=== PATIENT | female | born 1985 | race Caucasian/White ===

== ENCOUNTER 2021-05-17 22:20 | Inpatient (IN) | payer OTHER, SELFPAY ==
[2021-05-18 00:46] VITALS: BMI 29.0
--- NOTE | 2021-05-18 05:16 | PC.NURSE ---
Ms. Gonzales Batista arrived in our unit from [facility] at approximately 1930. She arrived via wheelchair. She's observed eating and drinking prior to assessment while sitting on the bench by the nurses station. Patient has poor eye contact, is delayed in answering questions and sometimes the same question needs to be asked multiple times. Patient often stares off into the distance when being asked a question. Sometimes she'll answer your question and other times the question has to be asked again. Patient stated she didn't understand why she's here. When asked why she's in the hospital, patient stated she didn't know. Patient stated she was knocking when the police showed up and took her to the emergency room. When asked to clarify what knocking is, patient stated she was just knocking on doors. Then later stated she had gone to a libertarian and got locked out of her apartment. So she began knocking on the doors to see if someone would let her in. Patient is a poor historian. Often told different versions of what happened. She's able to state her first and last name, date of and her address. She stated she lives alone but keeps in contact with her Aunt Lashaun. When asked how she keeps in touch with her Aunt, patient made no reply. Then after being asked once more, patient stated by phone and sometimes she would just walk to her Aunt's house. Patient stated her Aunt moved, so she doesn't know where her aunt lives now. Patient denies any pain, sob, or chest pains at this time. There are several bruises and scrapes on patient's person. She stated she tripped and fell. During assessment patient ran away from assessment and ran down the hallway. When asked where she was going, patient stated she needed to take a knee . When asked why she needed to take a knee patient stated she needed to pray, then proceeded to kneel down on the floor by the wooden bench and began to pray. when asked to sit during our assessment patient sat down and assessment completed. Patient denied doing drugs. Patient stated she does pot but she doesn't want anyone to know. Patient stated she likes to drink beer and wine in the evenings, then stated she occasionally drinks alcohol, then recanted and stated she rarely drinks alcohol. Patient recanted what she said about smoking marijuana and asked me to cross out that portion of the assessment. Patient changed her mind again about drinking alcohol and stated she wanted me to record that she rarely drinks alcohol. skin assessment completed. No major wounds. Several skin variances observed on bilateral thighs and on one upper arm. Patient has minor scratches on her fingers and face. Patient stated she fell. Oriented patient to new facility, room, restrooms and day room. Assisted patient with taking her food down to the day room. Patient asked if she could go lay down. Patient resting comfortably in bed at this time.
[2021-05-18 06:00] VITALS: RESP 18
--- NOTE | 2021-05-18 08:47 | PC.OT ---
OT evaluation received. OT eval not attempted this date due to nurse hold because of patient's behaviors.
--- NOTE | 2021-05-18 10:20 | W.PM.NPUH&PS ---
Providers/Chief Complaint Admitting Physician: Harvey Oates MD Chief Complaint: PSYCHOSIS: ROOM 170 HPI NPU History of Present Illness Gonzales Batista is a 35 year old female who presented to the outside hospital reporting that she was trying to get into her apartment complex, and she was banging on the door, reportedly for 2 to 3 hours and nobody would let her in. Police department did respond, and the patient asked the police for a psychiatric evaluation. She denied any suicidal ideation. Concerns were raised because she was having ?bizarre behaviors? without specificity other than the knocking outside of the door that did not appear to be hers. The patient reportedly shared bizarre stories with police involving UFO?s and Star Trek, but when the warehouse order puller at the hospital asked questions, she mostly stared at the floor. The affidavits from the police report state that she was trying to get into other peoples? homes. She had told her neighbors that she was God and going to the UFO in the petra. She was unable to enter into one front door at her place due to forgetting the passcode. The police detention attendant identified that she was being very erratic, unable to answer questions, and agreed to a psychiatric evaluation. She presents today continuing to seem fairly paranoid and having clear thought disorder with an inability to answer basic questions or be confused by basic questions. She denied any previous psychiatric hospitalization. She reported outpatient services a long time ago, maybe 20 years. She had initially said she had never been on medication, but when challenged on multiple occasions, she did say that she took Zoloft at one point and Xanax at one point. She reports she does not smoke cigarettes or drink alcohol. She has marijuana occasionally. She denied cocaine, methamphetamine, or any other illicit drugs. She denied using drugs in the past and then went back on her answer, saying that she did have a period of time from 16 to 18 where she had problem with cocaine. She asked that this senior technical writer take it off the page because that was a long time ago. I explained to her that this was in fact her psychiatric history, so it does not matter if it was a long time ago, as long as it is her history, it is appropriate. Then she said something about what Solomon Lagos said in relation to her having me take that information off, but then could not explain what that meant. She initially said that she had never been to a rehab, but then she said she went to one that was a self-check in and then later said that she went to that because she got in trouble, and she was more or less forced to go. She endorsed having a couple DUI?s. She reports that she is here because somebody told her ?I hurt my dog? but then she denied that that was true but could not explain why she came to the hospital if she knew it was not true. She said she was here to recover from health and the dog situation, and we went once again into the fact that according to her there really is no dog situation. She did remember knocking on doors and not being able to get in, and that somehow got her in trouble, but she could not explain why that was the case. She denied any suicide attempts in the past. We discussed the risks, benefits, and alternatives of starting Abilify for her thought disorder, and she remained confused, saying that she does not take medication, and then said that she would not want to take medication. PSYCHIATRIC HISTORY: As above. SUBSTANCE ABUSE HISTORY: As above. FAMILY HISTORY: She endorses mental health issues on her father?s side but denies any addiction issues on either side of the family and denies any suicide attempts or completions in the family. DEVELOPMENTAL HISTORY: She reports she was premature but is not sure if there were any issues related to that. She reports she learned to walk and talk and met her developmental milestones on time. She reports she did need some speech therapy, but then when asked about special education classes, she started talking about all kinds of course work throughout her life and no matter which way I explained it to her, she was completely confused by the concept of learning support classes or special education. It derailed the conversation for a few minutes. Meds NPU Home Medications Medication Instructions Recorded Confirmed Last Taken Type No Known Home Medications 05/18/21 05/18/21 Unknown History Allergies Allergy/AdvReac Type Severity Reaction Status Date / Time lisinopril Allergy ADR-Itching Verified 05/18/21 05:01 Mental Status Exam MSE Comments: This is a well-nourished, well-developed, white female, in hospital scrubs, with limited grooming and adequate eye contact. No abnormal movements except for mild psychomotor retardation. Cooperative with exam in no acute distress. Speech was decreased rate and volume. Mood described as good; affect odd. Thought process, disorganized at times. Thought content: patient denied any suicidal or homicidal ideation, there were no delusions reported but she had clear signs of paranoia and likely bizarre delusions, and there was some concern about her attending to internal stimuli. Attention and concentration were limited, and memory was unreliable, but none were formally tested. She is alert and oriented times person and place. Insight and judgment are impaired, impulse control is impaired. Vitals/I&O/Wt Last Vital Signs Resp 18 05/18/21 06:00 Weight last 48 hrs Weight 81.647 kg Weight 81.647 kg A&P Assessment and plan (1) Psychosis: Status: Acute (2) Cannabis abuse: Status: Acute Additional A&P Information This is a 35-year-old, white female, with reported long history of mental health issues going back into her childhood, but unclear whether she has had much recent treatment, who presents with clear thought disorder, without any signs of being drug-induced, who presents not open to medication or interventions. RECOMMENDATION AND PLAN: 1. Continue current medication. We will continue to offer an antipsychotic, specifically Abilify. 2. Encourage individual, group, and milieu therapy. 3. Continue q-15 minute checks for safety. 4. File 96-hour hold. Patient unable to make informed consent. Involuntary Hold Information 96 Hour Hold: 96 Hour Involuntary Admission: No Attestations NPU Medical Necessity Statement*: Inpatient hospitalization is medically necessary and the clinically appropriate intervention, at this time. We will monitor medications and make changes as indicated. Patient will be in the hospital for over two midnights. Likely length of stay is three to five days. Coding Level of Care Code Acute Slurry Mixer for Gwen Contreras Diagnoses Psychosis F29 Cannabis abuse F12.10
--- NOTE | 2021-05-18 12:44 | NPU.GN ---
[facility] Unit Group Topic:Positive Thinking / Positive Affirmations General Mood of Group Gonzales walked in group and then left .She did not stay to participate in group.
[2021-05-18 14:00] VITALS: BP 147/97; PULSE 111; RESP 20; TEMP 36.3; O2SAT 98
[2021-05-18] MEDS: acetaminophen 325 mg Tablet 650 MG PO (14:57)
--- NOTE | 2021-05-19 01:36 | PC.NURSE ---
Patient up and pacing in martell most of night. Does display some paranoia but denies any AVH, SI/HI. Thought process is bizarre. Did put sister on consent for staff to speak with. Early in shift did things such as undressing in room several times, asking for clean scrubs again. Had to be directed frequently to keep clothing on, not to close door, and to not go into others' rooms. Is easily redirectable at those times. Staff continue to monitor closely. Declined offered PRN medications throughout shift.
[2021-05-19 06:00] VITALS: RESP 17
--- NOTE | 2021-05-19 10:21 | NPU.GN ---
[facility] Unit Group Topic: Good Secrets Vs. Bad Secrets Psycho Therapy General Mood of Group: Gonzales did not attend group today she wanted to relax.
--- NOTE | 2021-05-19 15:42 | W.PM.NPUPNS ---
Subjective NPU Subjective: Interval history: Patient presents today with continued decompensation. She was doing spell casting and eating food with a voracious approach. She was saying that her mother was even though she was present for visitation. She was doing chants and other ritualistic behaviors. She once again refused medication. We discussed with her and family the plan to submit a 21-day hold and they understood and agreed to proceed with this plan. They deny that she is ever had a psychotic events like this and they deny any evidence of any atypical drugs in her life would not show up on a drug screen like spice or K2. Mental Status Exam MSE Comments: This is a well-nourished, well-developed, white female, in hospital scrubs, with limited grooming and adequate eye contact. No abnormal movements except for significant psychomotor agitation. Uncooperative with exam in no significant distress. Speech was increased rate and volume. Mood not described; affect odd. Thought process, disorganized. Thought content: patient did not respond to questions of lethality but had no significant aggression towards her self or others though she was on the verge of outwardly directed aggression almost requiring medication intervention, there were no delusions reported but she had clear signs of paranoia and likely bizarre delusions, and there was some concern about her attending to internal stimuli. Attention and concentration were impaired, and memory was impaired, but none were formally tested. She is alert and oriented times person. Insight and judgment are impaired, impulse control is impaired. Vitals/I&O/Wt Last Vital Signs Temp 97.3 F L 05/18/21 14:00 Pulse 111 H 05/18/21 14:00 Resp 18 05/19/21 21:22 BP 147/97 05/18/21 14:00 Pulse Ox 98 05/18/21 14:00 A&P Additional A&P Information (1) Psychosis: (2) Cannabis abuse: Additional A&P Information This is a 35-year-old, white female, with reported long history of mental health issues going back into her childhood, but unclear whether she has had much recent treatment, who presents with clear thought disorder, without any signs of being drug-induced, who presents not open to medication or interventions. RECOMMENDATION AND PLAN: 1. Continue current medication. We will continue to offer an antipsychotic, specifically Abilify. 2. Encourage individual, group, and milieu therapy. 3. Continue q-15 minute checks for safety. 4. File 96-hour hold. Patient unable to make informed consent. Involuntary Hold Information 96 Hour Hold: 96 Hour Involuntary Admission: No Attestations NPU Medical Necessity Statement*: Inpatient hospitalization is medically necessary and the clinically appropriate intervention, at this time. We will monitor medications and make changes as indicated. We will need to file a 21-day hold. Likely length of stay is 8-10 days. Coding Level of Care Code Acute Stage Electrician Helper for Gwen Contreras
--- NOTE | 2021-05-19 15:52 | PC.NURSE ---
Patient having a visit with her sister. Continuing bizarre behavior. Paranoid over food, claiming it's poisoned, that she is burning need water opening all of the creamer packets and sugar packets off of the patient counter and became aggressive when staff tried to berry picker machine operator empty container. Patient demanding meat I need meat she tore through 3 sandwhiches. bags of chips and threw them across the floor. Contacted Dr. Oates about prn medications. B52 given.
[2021-05-19 21:22] VITALS: RESP 18
--- NOTE | 2021-05-19 21:22 | PC.NURSE ---
VITAL SIGNS Patient refused vitals. When trying to get BP patient took the blood pressure off. Respirations were taken.
[2021-05-20 06:00] VITALS: BP 143/95; PULSE 104; RESP 18; TEMP 36.6; O2SAT 99
--- NOTE | 2021-05-20 07:42 | W.PM.NPUPNS ---
Subjective NPU Subjective: Interval history: Patient presents today a little more communicative but still with extremely bizarre behavior extremely food focus behavior asking for food like he has a voracious appetite. She continues to behave with significant paranoia and suspicion. We discussed the risk-benefit and alternatives of a trial of Abilify and she appeared to understand and agreed to proceed as is documented in this note but later appeared to refuse the medication when offered. Mental Status Exam MSE Comments: This is a well-nourished, well-developed, white female, in hospital scrubs, with limited grooming and adequate eye contact. No abnormal movements except for significant psychomotor agitation. Uncooperative with exam in continued significant distress the likely less than yesterday. Speech was increased rate and volume. Mood not described; affect odd. Thought process, disorganized. Thought content: patient did not respond to questions of lethality but had no significant aggression towards her self or others though she was on the verge of outwardly directed aggression almost requiring medication intervention, there were no delusions reported but she had clear signs of paranoia and likely bizarre delusions, and there was some concern about her attending to internal stimuli. Attention and concentration were impaired, and memory was impaired, but none were formally tested. She is alert and oriented times person. Insight and judgment are impaired, impulse control is impaired. Vitals/I&O/Wt Last Vital Signs Temp 97.3 F L 05/18/21 14:00 Pulse 111 H 05/18/21 14:00 Resp 18 05/19/21 21:22 BP 147/97 05/18/21 14:00 Pulse Ox 98 05/18/21 14:00 A&P Additional A&P Information (1) Psychosis: (2) Cannabis abuse: Additional A&P Information This is a 35-year-old, white female, with reported long history of mental health issues going back into her childhood, but unclear whether she has had much recent treatment, who presents with clear thought disorder, without any signs of being drug-induced, who presents not open to medication or interventions. RECOMMENDATION AND PLAN: 1. Continue current medication. Offer Abilify to milligrams p.o. every morning 2. Encourage individual, group, and milieu therapy. 3. Continue q-15 minute checks for safety. 4. File 21-day paperwork which has been completed Ronal first thing. Involuntary Hold Information 96 Hour Hold: 96 Hour Involuntary Admission: No Attestations NPU Medical Necessity Statement*: Inpatient hospitalization is medically necessary and the clinically appropriate intervention, at this time. We will monitor medications and make changes as indicated. We will need to file a 21-day hold. Likely length of stay is 8-10 days. Coding Level of Care Code Acute Tableau Analyst for Gwen Contreras
[2021-05-20 14:00] VITALS: PULSE 105; RESP 17; TEMP 36.5; O2SAT 100
--- NOTE | 2021-05-20 17:21 | PC.NURSE ---
Patient in room wrapped in blankets and sheets. Wrapped around feet and educated on fall risk. Patient chugging drinks and eating food. Then running to the bathroom and drinking water out of toilet in room. After patient is puking in sink and toilet. Patient refusing medication by mouth.
[2021-05-20] MEDS: water for injection-sterile 10 ML 1.2 ML (17:54)
[2021-05-20] MEDS: ziprasidone 20 mg/mL SDV IM ×2 (17:54→17:55)
--- NOTE | 2021-05-20 17:54 | PC.NURSE ---
Late Entry Patient has been hard to redirect all day. She has constantly been asking for water and snacks. While doing room checks patient's sink was noticed to be full of vomit. A while later patient was found in another bathroom sticking her finger down her throat. When I asked her about this she tried to deny it. After asking several times why she was doing this she stated she has done this for years at least two times a day. Patient stated she has lost a lot of weight by doing this. Patient then removed her shirt and she has several bruises on her left side and her left arm. Patient also has red area on her right breast that she would not let me look at and a big scratch on her left arm. Dr. Oates was notified of patients behavior and skin condition. No further orders at this time. Patient started going into other patients room and trying to steal snacks. Dr. Oates had ordered Abilify, but patient refused to take it. Dr. Oates was notified again of patient behavior and per TVORB from Dr. Oates patient was given Geodon 20mg IM. Patient was manually restrained using a SAFE technique. Rivera plant guard, Tanisha DARLING, and myself safely held patient while Lima MARTINES administered the injection in right deltoid. Patient is currently resting in bed. RR even and unlabored.
[2021-05-20 21:19] VITALS: BP 125/73; PULSE 75; RESP 16; TEMP 36.9; O2SAT 98
--- NOTE | 2021-05-21 01:26 | PC.NURSE ---
At start of shift patient remained in bed resting with eyes closed after receiving medications prior to this shift. Was arrousable for VS but quickly returned to sleeping, not answering questions. Patient woke at 2330. After waking patient has continued to appear somewhat confused, paranoid and anxious. Does endorse AVH but does not elaborate further than to nod her head when asked. Did deny SI/HI. When asked by nurse about the bruising and abrasions that she has, patient states that she is unsure what happened. When asked if someone did this to her, states that she is unsure but that it is possible. States that she is ok when asked. Reports that she cannot remember what happened and that she feels unclear. Patient says that she usually feels more clear than this but that when she does not sleep that she can't think well. Patient asked to shower but then continually attempted to go into another (empty) room withh her shower things. When asked to shower in her room, patient was seen to appear very uncomfortable and scared to enter room each time she went in. When asked states that she does not want to be in that room because something happened in there. Evasive with answers to further questions about this. D/t patient discomfort, patient moved to room 150. Patient did then shower. Since being up patient has remained up. Hyperactive in room, pacing about. Offered PRN medications and initially agreed to take but then change mind and refused any medications despite education and encouragement. Staff continue to monitor patient.
--- NOTE | 2021-05-21 05:07 | PC.NURSE ---
Patient has continued to be up, anxious and pacing. Offered PRN meds several times more. Agreed to take PRN Zydis and Vistaril. Meds pulled but patient then refused. Patient paranoid, stated she did not know who she could trust and just needed to fight through this alone without meds. Later when asked about physical pain, said yes and agreed to take Tylenol but also refused this once pulled. Has been hungry and eaten many snacks throughout the night as well as drinking copious amounts of water.
[2021-05-21 06:00] VITALS: BP 138/85; PULSE 86; RESP 25; TEMP 37.1; O2SAT 98; BMI 29.0
[2021-05-21] MEDS: ARIPiprazole 10 mg Tablet PO (08:26)
--- NOTE | 2021-05-21 08:44 | PC.NURSE ---
DURING SHIFT ASSESSMENT PATIENT WAS IN THE BATHROOM WITH HER FINGER DOWN HER THROAT TRYING TO MAKE HERSELF VOMIT. PATIENT STATES THIS IS A RELEASE FOR HER. DR. JUAREZ NOTIFIED. NO FURTHER ORDERS AT THIS TIME.
--- NOTE | 2021-05-21 11:53 | W.PM.NPUPNS ---
Subjective NPU Subjective: Interval history: Patient presents today seeming a bit more with it but continued to have moments where she speaks to herself in the midst of our conversations. She continued to have moments of almost full of session but seem to be less distraught. Once again met with family and they expressed the desire to transfer at some point so they can continue to be supportive nearby given that they need to return to work in [place] soon. We discussed the process of being placed on a hold once again and discussed the obstacles for a safe transfer. Mental Status Exam MSE Comments: This is a well-nourished, well-developed, white female, in hospital scrubs, with limited grooming and adequate eye contact. No abnormal movements except for continued psychomotor agitation. More cooperative with exam in continued significant distress though less than yesterday. Speech was increased rate and volume. Mood all right; affect odd. Thought process, disorganized. Thought content: patient did not respond to questions of lethality but had no significant aggression towards her self or others , there were no delusions reported but she had clear signs of paranoia and likely bizarre delusions, and there was some concern about her attending to internal stimuli. Attention and concentration were impaired, and memory was impaired, but none were formally tested. She is alert and oriented times person. Insight and judgment are impaired, impulse control is impaired. Vitals/I&O/Wt Last Vital Signs Temp 98.7 F 05/21/21 06:00 Pulse 86 05/21/21 06:00 Resp 25 H 05/21/21 06:00 BP 138/85 05/21/21 06:00 Pulse Ox 98 05/21/21 06:00 05/20/21 05/21/21 05/21/21 22:59 06:59 14:59 Intake Total Balance Weight last 48 hrs Weight 81.647 kg Data NPU : 05/21/21 12:18 05/21/21 12:18 A&P Additional A&P Information (1) Psychosis: (2) Cannabis abuse: Additional A&P Information This is a 35-year-old, white female, with reported long history of mental health issues going back into her childhood, but unclear whether she has had much recent treatment, who presents with clear thought disorder, without any signs of being drug-induced, who presents not open to medication or interventions. RECOMMENDATION AND PLAN: 1. Continue current medication. 2. Encourage individual, group, and milieu therapy. 3. Continue q-15 minute checks for safety. 4. File 21-day paperwork which has been completed Saturday first thing. Involuntary Hold Information 96 Hour Hold: 96 Hour Involuntary Admission: No Attestations NPU Medical Necessity Statement*: Inpatient hospitalization is medically necessary and the clinically appropriate intervention, at this time. We will monitor medications and make changes as indicated. We will need to file a 21-day hold. Likely length of stay is 8-10 days. Coding Level of Care Code Acute Medication Reconciliation Technician for Gwen Contreras
[2021-05-21 12:31] LABS: Hematocrit 36.6 % (37.0-47.0); Hemoglobin 12.8 g/dL (11.5-15.3); Mean Corpuscular Hemoglobin 31.3 pg (28.0-34.0); Mean Corpuscular Volume 89.5 fl (81-99); Mean Platelet Volume 9.9 fL (7.4-10.4); Platelet Count 392 10^3/cmm (130-400); Red Blood Count 4.09 10^6/uL (4.1-5.3); Red Cell Distribution Width 11.7 % (12.1-15.1); White Blood Count 12.1 10^3/uL (4.0-10.0)
[2021-05-21 12:39] LABS: Absolute Eosinophils 0.1 10^3/cmm (0.0-0.7); Absolute Segmented Neutrophil 6.5 10/cmm (1.6-7.1); Band Neutrophils Absolute 0.1 10^3/cmm (0.0-1.2); Eosinophils 1 %; Lymphocytes 38 %; Monocytes Absolute 0.7 10^3/cmm (0.1-0.6); Segmented Neutrophils 54 %; Total Cells Counted 100 (0-100)
[2021-05-21 12:40] LABS: Absolute Neutrophil 6.7 10^3/cmm (1.4-6.5); Platelet Estimate Normal (Normal)
[2021-05-21 12:41] LABS: Lymphocytes Absolute 4.6 10^3/cmm (1.2-3.4)
[2021-05-21 13:17] LABS: Alanine Aminotransferase 43 U/L (0-33); Albumin Level 4.8 g/dL (3.5-5.2); Alkaline Phosphatase 60 IU/L (35-105); Anion Gap 16.9 (5-19); Aspartate Amino Transferase 56 U/L (0-32); Blood Urea Nitrogen 10 mg/dL (6-20); C Reactive Protein 0.7 mg/L (0.0-4.9); Calcium 10.3 mg/dL (8.5-10.5); Carbon Dioxide 25 mmol/L (22-29); Chloride 101 mmol/L (98-107); Chol HDL Ratio 2.62 mg/dL (0.0-4.40); Cholesterol 152 mg/dL (0-200); Creatinine Clr Calc Pharmacy 118.5378; Free T4 Free Thyroxine 1.66 ng/dL (0.82-1.77); Globulin 2.7 g/dL (1.3-4.6); Glomerular Filtration Rate 94.2 mL/min (90-130); Glucose 104 mg/dL (65-115); HDL Cholesterol 58 mg/dL (60-100); LDL Cholesterol Calculated 73 mg/dL (50-129); LDL HDL Ratio 1.26 RATIO (0.00-3.22); Osmolality Calculated 287 mOsm/kg (285-295); Potassium 3.9 mmol/L (3.5-5.1); Sodium 139 mmol/L (136-145); Thyroid Stimulating Hormone 2.34 uIU/mL (0.27-4.20); Total Bilirubin 0.4 mg/dL (0.15-1.2); Total Protein 7.5 g/dL (6.6-8.7); Triglycerides 103 mg/dL (0-150)
[2021-05-21 13:18] LABS: Parathyroid Hormone 17.8 pg/mL (15-65)
[2021-05-21 13:20] LABS: Rapid Plasma Reagin Syphilis Nonreactive (Nonreactive)
[2021-05-21 13:56] LABS: Vitamin B12 385 pg/mL (232-1245)
[2021-05-21 14:00] VITALS: BP 148/91; PULSE 110; RESP 19; TEMP 36.7; O2SAT 99
--- NOTE | 2021-05-21 16:26 | PC.NURSE ---
Patient has been less psychotic today. Patient has only attempted vomiting a total of three times today that this nurse has seen. patient did become a little more anxious while visiting her sister. She kept taking her shoes throwing them in the dirty clothes. After visiting hours patient's sister came in a requested patient be allowed to use her [employer] hair deborah. After speaking with patient she stated she would like to use her deborah. I took patient her deborah and watched her trim her hair.
[2021-05-21 19:58] VITALS: RESP 22
--- NOTE | 2021-05-21 19:58 | PC.NURSE ---
pt refused vitals signs due to not trusting staff. pt stated i want to leave this world on my own time . pt also stated i have right to refuse those, i know what you're trying to do . aid educated pt on importance of vital signs. pt still refusing. nurse notified. respirations were observed at this time.
--- NOTE | 2021-05-21 22:43 | PC.NURSE ---
pt confused and attempting to go in other pt's rooms. aid educated pt on importance of other pt's privacy and educated pt to only go into assigned room. pt stated well it will be a fight . aid asked what pt meant by her statement. pt stated well I heard what you told me in your head and it will be a fight to not go into other patients rooms. aid again redirected patient to stay in her assigned room, pt had flat affect in response to aid.
[2021-05-21] MEDS: hyDROXYzine 25 mg Capsule 50 MG PO (22:45)
[2021-05-21] MEDS: trazodone 50 mg Tablet PO (22:46)
[2021-05-21] MEDS: haloperidol inj 5 mg/mL INJ 1 mL IM (23:16)
[2021-05-21] MEDS: LORazepam 2 mg/mL INJ 1 mL IM (23:16)
--- NOTE | 2021-05-21 23:17 | PC.NURSE ---
at 2250, pt requested can i have some medicine? when asked what kind of medicine she needed, pt stated i don't know. pt then asked if she was hurting anywhere, if she needed pain med, pt denied pain. pt was asked if she would like something for sleep, pt stated yes . pt was given trazodone 50mg po for sleep and vistaril 50mg po for anxiety. pt went back to room and immediately went into the bathroom and threw meds up, along with food she had ingested earlier this evening. pt had been noted going into other rooms, and needing redirection several times this night. pt noted to smile at staff each time and try to run into the room she was headed for. security was notified to be on standby if needed. RN requested pt be given ativan 2mg im and haldol 5mg im. medications pulled from Pyxis, and RN administered said meds in pts left deltoid without difficulty.
--- NOTE | 2021-05-22 | PC.NURSE ---
pt resting quietly in her room with both eyes closed
--- NOTE | 2021-05-22 00:10 | PC.NURSE ---
Patient is noted in personal bathroom with her fingers in her mouth and vomiting in toilet. Client reports she is trying to keep myself alive. Patient runs up and down hallway in attempt to avoid staff. Patient tried to elope by trying to force the exit door open. Patient continues to respond to internal stimuli and is very paranoid, smelling all food and liquids given to her by staff. Patient requires constant redirection. Continue to monitor patient.
[2021-05-22 06:00] VITALS: RESP 16
--- NOTE | 2021-05-22 08:10 | PC.NURSE ---
pt sedated, nursing staff unable to safely administer scheduled Abilify at this time
--- NOTE | 2021-05-22 12:25 | NPU.GN ---
[facility] NeuroPsych Unit Group Topic:Emotions General Mood of Group: Patient come to group on time, dressed appropriately in hospital scrubs. The patient was well groomed with good hygiene. The group discussed emotions and where we feel these emotions in our body. They were able to color coordinate the color to the emotion and color the specific emotion to the body part that they feel these emotions. Everyone shared in the group their specific emotions and where the emotion is felt on their body. There were some new patients in NPU from over the weekend. It was discussed with the group what 96 hour hold and 21 day holds were. We spoke about self admitting. We also spoke about [facility]'s Behavioral Health Care and the importance of after care. Patients were able to ask questions about [facility] Behavioral health and about NPU.
--- NOTE | 2021-05-22 12:53 | PC.NURSE ---
patient has continued to remain in her room thus far today. she has had brief periods of wakefulness, where she has stared out the window. She has not had any disruptive or outburst behaviors. She has not eaten any of her breakfast or lunch trays that were offered to her. she has a cup of water at her bedside. she is not interacting with staff as they are entering her room on safety rounds.
--- NOTE | 2021-05-22 13:56 | P.NPUPN_ITS ---
Subjective NPU Subjective: Interval history: Patient presents today reporting that things are okay. She was a little more communicative with her words but those words were not functional in any sense. At 1 point when asked how she was doing she strung together about 7 or 8 words that might be a person's response to that question and they does all were 2-4 single words that do not reflect her actual functional state. She continues to seem internally preoccupied but has been less food focused and has continued to take the medication. Mental Status Exam MSE Comments: This is a well-nourished, well-developed, white female, in hospital scrubs, with limited grooming and adequate eye contact. No abnormal movements except for continued psychomotor agitation less active in its kinetic nature but still absent a lot of goal-directed behavior. More cooperative with exam in continued significant distress though less than yesterday. Speech was more normal rate and volume. Mood described as fine; affect odd. Thought process, disorganized. Thought content: patient, there were no delusions reported but she had clear signs of paranoia and likely bizarre delusions, and there was some concern about her attending to internal stimuli. Attention and concentration were limited, and memory was impaired, but none were formally tested. She is alert and oriented times person. Insight and judgment are imp aired, impulse control is impaired. Vitals/I&O/Wt Last Vital Signs Temp 98.1 F 05/21/21 14:00 Pulse 110 H 05/21/21 14:00 Resp 16 05/22/21 06:00 BP 148/91 05/21/21 14:00 Pulse Ox 99 05/21/21 14:00 Weight last 48 hrs Weight 81.647 kg Data NPU : 05/21/21 12:18 05/21/21 12:18 A&P Additional A&P Information (1) Psychosis: (2) Cannabis abuse: Additional A&P Information This is a 35-year-old, white female, with reported long history of mental health issues going back into her childhood, but unclear whether she has had much recent treatment, who presents with clear thought disorder, without any signs of being drug-induced, who presents not open to medication or interventions. RECOMMENDATION AND PLAN: 1. Continue current medication. 2. Encourage individual, group, and milieu therapy. 3. Continue q-15 minute checks for safety. 4. Filed 21-day hold paperwork.. Involuntary Hold Information 96 Hour Hold: 96 Hour Involuntary Admission: No Attestations NPU Medical Necessity Statement*: Inpatient hospitalization is medically necessary and the clinically appropriate intervention, at this time. We will monitor medications and make changes as indicated. We will need to file a 21-day hold. Likely length of stay is 8-10 days. Coding Level of Care Code Acute Clinical Account Executive for Gwen Contreras
[2021-05-22 14:00] VITALS: RESP 16; TEMP 36.7
--- NOTE | 2021-05-22 16:38 | PC.NURSE ---
[facility] [place] officers served Ms. Batista with court summons for her 21 day commitment papers at [id number]
[2021-05-22 20:17] VITALS: BP 136/87; PULSE 117; RESP 20; TEMP 36.8; O2SAT 98
[2021-05-23 04:57] LABS: T3 Total 170 ng/dL (76-181)
[2021-05-23 06:00] VITALS: RESP 15
--- NOTE | 2021-05-23 06:36 | PC.NURSE ---
aid attempted to obtain pt's vitals, pt stated no ma'am, i will refuse these today aid educated pt on importance of vitals pt still refused vitals by stating no thank you, not today
--- NOTE | 2021-05-23 07:37 | P.NPUPN_ITS ---
Subjective NPU Subjective: Interval history: Patient presents today continuing to have significant oddities in her interactions. Though seems to have some improvement with the Abilify. She continues to show slow improvement with greater ability to have a conversation without odd statements able to focus a little better and seeming to make a little more sense more of the conversation than yesterday. We discussed the 21-day hold hearing that would be at 3 PM tomorrow, explained the process and whether she needed to do anything and what her rights were. Mental Status Exam MSE Comments: This is a well-nourished, well-developed, white female, in hospital scrubs, with limited grooming and adequate eye contact. No abnormal movements except for less psychomotor agitation less active in its kinetic nature with some slow improvement in her goal-directed behavior. More cooperative with exam in less distress. Speech was more normal rate and volume. Mood described as fine; affect odd. Thought process, disorganized, but improving. Thought content: She denied suicidal or homicidal ideation, there were no delusions reported but she had clear signs of paranoia and likely bizarre delusions, and there was still some concern about her attending to internal stimuli. Attention and concentration were limited, but improving and memory was impaired, but none were formally tested. She is alert and oriented times person. Insight and judgment are impaired, impulse control is impaired. Vitals/I&O/Wt Last Vital Signs Temp 98.2 F 05/22/21 20:17 Pulse 117 H 05/22/21 20:17 Resp 20 H 05/22/21 20:17 BP 136/87 05/22/21 20:17 Pulse Ox 98 05/22/21 20:17 Weight last 48 hrs Weight 81.647 kg Data NPU : 05/21/21 12:18 05/21/21 12:18 A&P Additional A&P Information (1) Psychosis: (2) Cannabis abuse: Additional A&P Information This is a 35-year-old, white female, with reported long history of mental health issues going back into her childhood, but unclear whether she has had much recent treatment, who presents with clear thought disorder, without any signs of being drug-induced, who presents not open to medication or interventions. RECOMMENDATION AND PLAN: 1. Continue current medication. 2. Encourage individual, group, and milieu therapy. 3. Continue q-15 minute checks for safety. 4. 21-day hold hearing tomorrow at 3 PM. Involuntary Hold Information 96 Hour Hold: 96 Hour Involuntary Admission: No Attestations NPU Medical Necessity Statement*: Inpatient hospitalization is medically necessary and the clinically appropriate intervention, at this time. We will monitor medications and make changes as indicated. We will need to file a 21-day hold. Likely length of stay is 8-10 days. Coding Level of Care Code Acute Floor Attendant for Gwen Contreras
[2021-05-23] MEDS: ARIPiprazole 10 mg Tablet PO (08:32)
[2021-05-23 11:03] LABS: CENTROMERE B ANTIBODY <1.0 NEG AI (<1.0 NEG); JO-1 ANTIBODY <1.0 NEG AI (<1.0 NEG); RNP ANTIBODY <1.0 NEG AI (<1.0 NEG); SCL-70 ANTIBODY <1.0 NEG AI (<1.0 NEG); SJOGREN'S ANTIBODY (SS-A) <1.0 NEG AI (<1.0 NEG); SM ANTIBODY <1.0 NEG AI (<1.0 NEG); SS-B <1.0 NEG AI (<1.0 NEG)
[2021-05-23 14:00] VITALS: RESP 18; TEMP 36.4
--- NOTE | 2021-05-23 14:11 | PC.NURSE ---
PATIENT REFUSED 1400 VITALS ON HER TODAY. CHARGE NURSE NOTIFIED. WILL CONTINUE TO MONITOR.
[2021-05-23 15:13] LABS: COMPLEMENT COMPONENT C3C 133 mg/dL (83-193); COMPLEMENT COMPONENT C4C 35 mg/dL (15-57)
[2021-05-23 15:28] LABS: THYROID PEROXIDASE ANTIBODIES 1 IU/mL (<9)
[2021-05-23 17:36] VITALS: BP 151/87; PULSE 104; RESP 18; TEMP 36.3; O2SAT 99
--- NOTE | 2021-05-23 17:46 | PC.NURSE ---
Patient refused to have vital signs taken at 1400. As I was coming in to the nurse's station after taking vital signs on a new admit, Gonzales says, Yes please. Asked her if she wanted her's taken and she agreed.
[2021-05-23 20:56] VITALS: RESP 17
[2021-05-24 06:00] VITALS: BP 135/94; PULSE 99; RESP 18; TEMP 36.7; O2SAT 99
[2021-05-24] MEDS: ARIPiprazole 10 mg Tablet PO (09:41)
--- NOTE | 2021-05-24 13:17 | NPU.GN ---
[facility] Neuro[facility] Unit Group Topic:Coping Checkers General Mood of Group Gonzales did attend group today and she participated well. She wanted to speak with this casualty underwriter after group. This casualty underwriter spoke with the patient. The patient reported that she would like services to and was willing to drive here once a week for services. This casualty underwriter found out how far irt was for patient and it is about [address] . Willy casualty underwriter told patient that is out of our catchment but this casualty underwriter would work with the social workers and find out what is around her area for her to utilize for resources when she is out. This patient asked this casualty underwriter what she feels is best for patient to do and who to live with, that she would do what the casualty underwriter suggested. This casualty underwriter responded to the patient that this casualty underwriter can not answer that as this casualty underwriter does not know her well enough, but is sure that the treatment team will help guide her. As we all want what is best for our patients.
[2021-05-24 14:00] VITALS: BP 143/97; PULSE 101; RESP 20; TEMP 36; O2SAT 99
[2021-05-24 14:33] LABS: COMPLEMENT, TOTAL (CH50) >60 U/mL (31-60)
[2021-05-24 14:41] LABS: ANA PATTERN Nuclear, Homogeneous; ANA SCREEN, IFA POSITIVE (NEGATIVE); Anti-Nuclear AB Pattern #2 Nuclear, Speckled
--- NOTE | 2021-05-24 15:07 | PC.NURSE ---
off unit ] 1445 Pt escorted off the unit to court by the police dept.
--- NOTE | 2021-05-24 16:04 | PC.NURSE ---
1550 returned to the unit from court. will continue to monitor.
--- NOTE | 2021-05-24 18:08 | P.NPUPN_ITS ---
Subjective NPU Subjective: Interval history: Patient is significantly improved even over yesterday. She presented herself very well in the court hearing today. She agrees that the Abilify is making a big difference for her and she says that she will continue to take it. She feels like she is ready to be released very soon. Her family thought that she was going back to [place] with them. However in testimony on the stand she said that she might stay here with someone. After the hearing she was very pleasant and was not upset about being held longer. She seemed to understand that a few more days would be better. Mental Status Exam 2 MSE Comments: This is a well-nourished, well-developed, white female, in hospital scrubs, with limited grooming and good eye contact. No abnormal movements or psychomotor agitation. Her actions are much more logical and goal- directed. More cooperative with exam in less distress. Speech was more normal rate and volume. Mood described as fine; affect euthymic. Thought process, logical and well organized. Thought content: She denied suicidal or homicidal ideation, there were no delusions reported Attention and concentration much improved, but improving and memory was impaired, but none were formally tested. She is alert and oriented times person. Insight and judgment are much improved, impulse control is much improved. Vitals/I&O/Wt Last Vital Signs Temp 96.8 F L 05/24/21 14:00 Pulse 101 H 05/24/21 14:00 Resp 20 H 05/24/21 14:00 BP 143/97 05/24/21 14:00 Pulse Ox 99 05/24/21 14:00 Data NPU : 05/21/21 12:18 05/21/21 12:18 A&P Assessment and plan (1) Psychosis: Status: Acute (2) Cannabis abuse: Status: Acute Additional A&P Information (1) Psychosis: (2) Cannabis abuse: Additional A&P Information This is a 35-year-old, white female, with reported long history of mental health issues going back into her childhood, but unclear whether she has had much recent treatment, who presents with clear thought disorder, without any signs of being drug-induced, who presents not open to medication or interventions. RECOMMENDATION AND PLAN: 1. Continue current medication. 2. Encourage individual, group, and milieu therapy. 3. Continue q-15 minute checks for safety. Involuntary Hold Information 96 Hour Hold: 96 Hour Involuntary Admission: No Attestations NPU Medical Necessity Statement*: Inpatient hospitalization is medically necessary and the clinically appropriate intervention at this time. We will initiate medications and make changes as indicated. He will be in the hospital for 2 more 3 more days Coding Level of Care Code Acute Outside Machinist Helper for Gwen Contreras Diagnoses Psychosis F29 Cannabis abuse F12.10
[2021-05-24 20:06] VITALS: PULSE 109; RESP 17; TEMP 36.8; O2SAT 98
[2021-05-25 06:00] VITALS: BP 159/106; PULSE 109; RESP 16; TEMP 36.4; O2SAT 99
--- NOTE | 2021-05-25 06:20 | PC.NURSE ---
RN notified of patients high blood pressure
--- NOTE | 2021-05-25 10:12 | PC.NURSE ---
medication Pt made herself throw up her medication, pt stated that she felt that it would make her heart stop. will continue to monitor.
--- NOTE | 2021-05-25 13:22 | NUR.SHIFT ---
med refusal Dr ordered a once one dose of 10mg Abilify, pt refused to take medication, pt stated that it would make her heart stop. Will continue to monitor this pt.
[2021-05-25 14:00] VITALS: BP 159/106; PULSE 109; RESP 16; TEMP 36.4; O2SAT 99
[2021-05-25] MEDS: ARIPiprazole 10 mg Tablet PO (14:44)
--- NOTE | 2021-05-25 15:03 | P.NPUPN_ITS ---
Subjective NPU Subjective: Interval history: She continues to be improved. However, this morning she threw up her Abilify 5 minutes after taking it. She felt like it was making her heart flutter and it was going to make her heart stop. The nurse observed the pill completely intact in the toilet. She was offered another one and refused. She was offered another try at 3 PM and again refused. She was told this would definitely impact on her ability to be discharged and she said that she reluctantly understood. Her family was informed also. She says that she still does not know whether she should go back home to [place] with her family or stay here in [place]. Mental Status Exam MSE Comments: This is a well-nourished, well-developed, white female, in hospital scrubs, with limited grooming and good eye contact. No abnormal movements or psychomotor agitation. Her actions are logical and goal-directed. More cooperative with exam in less distress. Speech was more normal rate and vol ume. Mood described good; affect euthymic. Thought process, logical and well organized. Thought content: She denied suicidal or homicidal ideation, there were no delusions reported Attention and concentration much improved, but improving and memory was impaired, but none were formally tested. She is alert and oriented times person. Insight and judgment are much improved, impulse control is much improved. Vitals/I&O/Wt Last Vital Signs Temp 97.6 F 05/25/21 14:00 Pulse 109 H 05/25/21 14:00 Resp 16 05/25/21 14:00 BP 159/106 05/25/21 14:00 Pulse Ox 99 05/25/21 14:00 Data NPU : 05/21/21 12:18 05/21/21 12:18 A&P Assessment and plan (1) Psychosis: Status: Acute (2) Cannabis abuse: Status: Acute Additional A&P Information (1) Psychosis: (2) Cannabis abuse: Additional A&P Information This is a 35-year-old, white female, with reported long history of mental health issues going back into her childhood, but unclear whether she has had much recent treatment, who presents with clear thought disorder, without any signs of being drug-induced, who presents not open to medication or interventions. RECOMMENDATION AND PLAN: 1. Continue current medication. 2. Encourage individual, group, and milieu therapy. 3. Continue q-15 minute checks for safety. Involuntary Hold Information 96 Hour Hold: 96 Hour Involuntary Admission: No Attestations NPU Medical Necessity Statement*: Inpatient hospitalization is medically necessary and the clinically appropriate intervention at this time. We will initiate medications and make changes as indicated. Coding Level of Care Code Acute Buffing Wheel Inspector for Gwen Contreras Diagnoses Psychosis F29 Cannabis abuse F12.10
[2021-05-25 15:13] LABS: DNA AB (DS) CRITHIDIA,IFA NEGATIVE (NEGATIVE)
[2021-05-25 19:56] VITALS: RESP 18
[2021-05-26 06:00] VITALS: RESP 15
[2021-05-26] MEDS: ARIPiprazole 10 mg Tablet PO (08:28)
--- NOTE | 2021-05-26 12:26 | P.NPUPN_ITS ---
Subjective NPU Subjective: Interval history: She continues to be improved. She continued to refuse her Abilify until her family came and talked with her. She then took her Abilify yesterday afternoon and also took it this morning. Evidently her family talked to her and she says that she will now definitely go back to [place] with them. She is adamant that she will take her medication. She said that may be just taking it with food would help. She has never had any problems with any doses before yesterday. She adamantly affirmed several times that she would continue taking it. Mental Status Exam MSE Comments: This is a well-nourished, well-developed, white female, in hospital scrubs, with limited grooming and good eye contact. No abnormal movements or psychomotor agitation. Her actions are logical and goal-directed. Cooperative with exam in less distress. Speech was normal rate and volume. Mood described good; affect euthymic. Thought process, logical and well organized. Thought content: She denied suicidal or homicidal ideation, there were no delusions reported Attention and concentration much improved, but improving and memory was impaired, but none were formally tested. She is alert and oriented times person. Insight and judgment are much improved, impulse control is much improved. Vitals/I&O/Wt Last Vital Signs Temp 97.6 F 05/25/21 14:00 Pulse 109 H 05/25/21 14:00 Resp 15 05/26/21 06:00 BP 159/106 05/25/21 14:00 Pulse Ox 99 05/25/21 14:00 Data NPU : 05/21/21 12:18 05/21/21 12:18 A&P Additional A&P Information (1) Psychosis: (2) Cannabis abuse: Additional A&P Information This is a 35-year-old, white female, with reported long history of mental health issues going back into her childhood, but unclear whether she has had much recent treatment, who presents with clear thought disorder, without any signs of being drug-induced, who presents not open to medication or interventions. RECOMMENDATION AND PLAN: 1. Continue current medication. 2. Encourage individual, group, and milieu therapy. 3. Continue q-15 minute checks for safety. Involuntary Hold Information 96 Hour Hold: 96 Hour Involuntary Admission: No Attestations NPU Medical Necessity Statement*: Inpatient hospitalization is medically necessary and the clinically appropriate intervention at this time. We will initiate medications and make changes as indicated. Coding Level of Care Code Acute Machine Engraver for Gwen Contreras
--- NOTE | 2021-05-26 13:00 | NPU.GN ---
[facility] Unit Group Topic: Coping Bingo General Mood of Group: Patient did come to group on time, appropriately dressed. Good Hygiene. The patient did participate in oping Bingo. The patient did communicated when needed. The patient was not disruptive in group.
[2021-05-26 14:00] VITALS: BP 152/99; PULSE 106; RESP 18; TEMP 36.4; O2SAT 100
[2021-05-26 21:30] VITALS: BP 132/85; PULSE 93; RESP 17; TEMP 36.6; O2SAT 100
[2021-05-27 06:00] VITALS: RESP 16
--- NOTE | 2021-05-27 07:13 | P.NPUDS_ITS ---
Diagnoses at Discharge Discharge Diagnosis (1) Psychosis: Status: Acute (2) Cannabis abuse: Status: Acute Reason for Visit Reason for Visit: PSYCHOSIS: ROOM 170 Brief History: History of Present Illness Gonzales Batista is a 35 year old female who presented to the outside hospital reporting that she was trying to get into her apartment complex, and she was ba nging on the door, reportedly for 2 to 3 hours and nobody would let her in. Police department did respond, and the patient asked the police for a psychiatric evaluation. She denied any suicidal ideation. Concerns were raised because she was having ?bizarre behaviors? without specificity other than the knocking outside of the door that did not appear to be hers. The patient reportedly shared bizarre stories with police involving UFO?s and Star [employer], but when the industrial technology teacher at the hospital asked questions, she mostly stared at the floor. The affidavits from the police report state that she was trying to get into other peoples? homes. She had told her neighbors that she was God and going to the O in the [place]. She was unable to enter into one front door at her place due to forgetting the passcode. The police commanding officer identified that she was being very erratic, unable to answer questions, and agreed to a psychiatric evaluation. She presents today continuing to seem fairly paranoid and having clear thought disorder with an inability to answer basic questions or be confused by basic questions. She denied any previous psychiatric hospitalization. She reported outpatient services a long time ago, maybe 20 years. She had initially said she had never been on medication, but when challenged on multiple occasions, she did say that she took Zoloft at one point and Xanax at one point. She reports she does not smoke cigarettes or drink alcohol. She has marijuana occasionally. She denied cocaine, methamphetamine, or any other illicit drugs. She denied using drugs in the past and then went back on her answer, saying that she did have a period of time from 16 to 18 where she had problem with cocaine. She asked that this medical underwriter take it off the page because that was a long time ago. I explained to her that this was in fact her psychiatric history, so it does not matter if it was a long time ago, as long as it is her history, it is appropriate. Then she said something about what Solomon Lagos said in relation to her having me take that information off, but then could not explain what that meant. She initially said that she had never been to a rehab, but then she said she went to one that was a self-check in and then later said that she went to that because she got in trouble, and she was more or less forced to go. She endorsed having a couple DUI?s. She reports that she is here because somebody told her ?I hurt my dog? but then she denied that that was true but could not explain why she came to the hospital if she knew it was not true. She said she was here to recover from health and the dog situation, and we went once again into the fact that according to her there really is no dog situation. She did remember knocking on doors and not being able to get in, and that somehow got her in trouble, but she could not explain why that was the case. She denied any suicide attempts in the past. We discussed the risks, benefits, and alternatives of starting Abilify for her thought disorder, and she remained confused, saying that she does not take medication, and then said that she would not want to take medication. PSYCHIATRIC HISTORY: As above. SUBSTANCE ABUSE HISTORY: As above. FAMILY HISTORY: She endorses mental health issues on her father?s side but denies any addiction issues on either side of the family and denies any suicide attempts or completions in the family. DEVELOPMENTAL HISTORY: She reports she was premature but is not sure if there were any issues related to that. She reports she learned to walk and talk and met her developmental milestones on time. She reports she did need some speech therapy, but then when asked about special education classes, she started talking about all kinds of course work throughout her life and no matter which way I explained it to her, she was completely confused by the concept of learning support classes or special education. It derailed the conversation for a few minutes. Hospital Course Hospital Course Hospital Course She slowly acclimated to the individual, group and milieu therapies provided. Abilify was gradually tolerated to 10 mg. She initially was noncompliant but her family convinced her to take it. She tolerated these doses and showed steady improvement during her stay. Her mother and 2 sisters came from [facility] and were very supportive. They were very helpful in getting her to be compliant with treatment and will be very important for her to continue to stay compliant. She was able to contract for safety outside hospital prior to discharge. During the hospitalization, patient had routine laboratory studies which were within normal limits except for few outliers. Additionally there was a general medical evaluation which was also within normal limits and revealed no new acute processes. Discharge Summary: At the time of discharge, lethality was denied and psychosis was resolving. Mood and anxiety were well managed. Patient endorsed a plan to follow-up with the aftercare recommendations of the treatment team. Patient was evaluated and deemed to be absent credible lethality, and had achieved the maximum benefit from an inpatient hospitalization, so was discharged. Involuntary Hold Information 96 Hour Hold: 96 Hour Involuntary Admission: No Mental Status Exam MSE Comments: This is a well-nourished, well-developed, white female, in hospital scrubs, with limited grooming and good eye contact. No abnormal movements or psychomotor agitation. Her actions are logical and goal-directed. Cooperative with exam in less distress. Speech was normal rate and volume. Mood described good; affect euthymic. Thought process, logical and well organized. Thought content: She denied suicidal or homicidal ideation, there were no delusions reported Attention and concentration much improved, but improving and memory was impaired, but none were formally tested. She is alert and oriented times person. Insight and judgment are much improved, impulse control is much improved. Discharge Data Data Completed and Pending: Pending at discharge Category Date Time Status Copper Level Rout ine Lab 05/21/21 16:45 Uncollected Urinalysis and Mi croscopic Routine Lab 05/21/21 16:48 Uncollected Urine Cortisol Ro utine Lab 05/21/21 16:45 Uncollected Vitals: Last Vital Signs Temp 97.8 F 05/26/21 21:30 Pulse 93 05/26/21 21:30 Resp 16 05/27/21 06:00 BP 132/85 05/26/21 21:30 Pulse Ox 100 05/26/21 21:30 Discharge Plan Discharge Patient Disposition: Home Condition: Stable Prescriptions: New aripiprazole 10 mg Tablet 10 mg PO DAILY 30 Days Qty: 30 RF: 1 No Action No Known Home Medications RF: 0 Discharge Orders: Discharge Order (Routine); Ordered 05/27/21 Ordered By: Don Delgado Discharge Diet: Regular Discharge Activity: Resume usual activity Patient Instructions: Opioid Safety Discharge Attestations NPU Time Spent in Discharge Care*: less than 30 min Coding Level of Care Code Acute Chg FW DC note Diagnoses Psychosis F29 Cannabis abuse F12.10
[2021-05-27 09:40] VITALS: BP 124/78; PULSE 81; RESP 16; TEMP 37.1; O2SAT 98
[2021-05-27] MEDS: ARIPiprazole 10 mg Tablet PO (10:03)
== END 2021-05-27 10:48 | disposition home or self-care (01) | DRG 885 ==
PROVIDERS: Admitting Provider Psychiatry & Neurology Psychiatry; Visit Provider Psychiatry & Neurology Psychiatry
DX: F29 Unspecified psychosis not due to a substance or known physiological condition (principal); Z81.8 Family history of other mental and behavioral disorders; F12.10 Cannabis abuse, uncomplicated
CPT/HCPCS: 36415; 80053; 80061; 82310; 82607; 83970; 84439; 84443; 84480; 85007; 85027; 85651; 86140; 86160; 86162; 86235; 86255; 86376; 86592; 90935; 96372; 97150; 97165; J1630; J2060; J3486